=== PATIENT | female | born 1970 | race Caucasian/White ===

== ENCOUNTER 2020-04-15 21:41 | Emergency (ER) | payer OTHER, SELFPAY ==
[2020-04-15 21:44] VITALS: BP 187/88; PULSE 72; RESP 16; TEMP 36.9; O2SAT 99; BMI 74.5
[2020-04-15 23:23] VITALS: BP 136/77; PULSE 70; RESP 16; TEMP 35.6; O2SAT 97
--- NOTE | 2020-04-16 00:10 | ED.HA ---
HPI - Headache General Chief Complaint: General Medical Stated Complaint: HYPERTENSION Time Seen by Provider: 04/16/20 00:02 Source: patient Mode of arrival: ambulatory History of Present Illness HPI Narrative: patient states for about 1 week has had a migraine patient states has migraines often but this week he did not go way because of blood pressure is up. She took her blood pressure at home and it was elevated so she came into emergency department. Patient denies fevers or chills. Denies neck stiffness. Denies head trauma. Denies change in vision. Denies numbness or tingling to extremities x4. Patient states has had worse headaches. This is a slow onset of her headache. Described as global MD elicited complaint: migraine Onset (ago): day(s) ( 5) Onset description: gradually Location: frontal Severity: moderate Pain scale (0-10): 5 Quality & Timing: aching Relieving factors: rest Associated symptoms: nausea, neck stiffness, photophobia and sensitivity to sound Related Data Previous Rx's Medication Instructions Recorded psbfsrcknl-yytkiugqktxze-nleq 1 cap PO Q8H PRN #10 cap 04/16/20 [Fioricet] Allergies Allergy/AdvReac Type Severity Reaction Status Date / Time prednisone [PREDNISONE] Allergy Severe ARRYTHMIA Verified 04/16/20 00:19 shellfish derived Allergy Severe SWELLING Verified 04/16/20 00:19 lisinopril AdvReac Cough Verified 04/16/20 00:19 From ZOLOFT Allergy Severe ARRYTHMIA Uncoded 04/16/20 00:19 shellfish Allergy Unknown Anaphylaxis Uncoded 04/16/20 00:19 Review of Systems Review of Systems: Constitutional : No Weight loss, No Fever, No Chills, No Night Sweats, No Fatigue, No Malaise ENT/Mouth : No Hearing loss, No Ear Pain, No Nasal Congestion, No Sinus Pain, No Hoarseness, No sore throat, No Rhinorrhea, No Swallowing Difficulty Eyes: No Eye Pain, No Swelling, No Redness, No Foreign Body, No Discharge, No Vision Changes Cardiovascular : No Chest Pain, No SOB, No Dyspnea on Exertion, No Orthopnea, No Edema, No Palpitations Respiratory : No Cough, No Sputum, No Wheezing, No Smoke Exposure, No Dyspnea Gastrointestinal : No Nausea, No Vomiting, No Diarrhea, No Constipation, No abdominal Pain, No Hematochezia, No Melena Genitourinary : no irregular bleeding, No Dysuria, No Urinary Frequency, No Hematuria, No Urinary Incontinence, No Urgency, No Flank Pain, No Urinary Flow Changes, No Hesitancy Musculoskeletal : No joint pain, No Myalgias, No Joint Swelling Skin : No Skin Lesions, No rash Neuro : No Weakness, No Numbness, No Paresthesias, No Loss of Consciousness, No Dizziness, positive Headache Psych : No Anxiety/Panic, No Depression, No SI/HI/AH/VH, No Social Issues, Heme/Lymph: No Bruising, No Bleeding,No Lymphadenopathy Endocrine : No Polyuria, No Polydipsia, No Temperature Intolerance Neurologic: Denies Abnormal speech present COUNTS INCLUDE 234 BEDS AT THE [facility] Past Medical History Attestation statement: The following information was validated with the patient. Source: old records reviewed Medical History Back pain DVT (deep venous thrombosis) Hypertension Varicose vein of leg Social History Social History (Updated 04/16/20 @ 00:12 by Dangelo Gannon DO) Household Members: Family Alcohol intake: current Alcohol intake frequency: a few times a month Smoking Status: Never smoker Smoked in Last 30 Days: No Use of substances other than those prescribed or required for medical reasons: No Advance Directives: No Advance Directives Information Provided: No Physical Exam Vital Signs and I&O and Narrative: Vital Signs and I&O: Vital Signs Temp 96.1 F L 04/15/20 23:23 Pulse 70 04/15/20 23:23 Resp 16 04/15/20 23:23 BP 136/77 04/15/20 23:23 Pulse Ox 97 04/15/20 23:23 Intake & Output 04/15/20 04/15/20 04/16/20 06:59 18:59 06:59 Weight 216 kg Body Mass Index 74.5 vital signs reviewed normal blood pressure Const: General: cooperative, healthy appearing and well developed; No no acute distress HENMT: Head: Yes normal to inspection Eyes: Pupils: Equal, round and reactive pupils present Neck: Other: no neck stiffness Neck: Yes normal visual inspection Chest: Chest palpation & inspection: normal inspection of the chest Resp: Effort & Inspection: normal respiratory effort Auscultation: clear to auscultation bilaterally, normal I/E ratio, no crackles and no rales Cardio: Jugular venous distension: no JVD Rhythm: regular rhythm GI: Inspection: Yes normal to inspection Back/Spine/Pelvis: Thoracic/Lumbar Spine: thoracic and lumbar spine normal to inspection Skin: Rashes: no rashes Neuro: Cranial nerves: Yes Equal, round and reactive pupils present and Yes Bilaterally intact EOM present Cognition (Neuro): normal cognition Speech: No Abnormal speech present Gait exam (Neuro): Normal gait present Motor exam (neuro): 5/5 motor strength present throughout Extrem: General: Yes normal to inspection and No muscle hypertrophy Psych: Appearance: grossly normal Course Reevaluation(s) Reevaluation #1: patient states feels this headache is similar to her migraine that was related to blood pressure but now feels better that her blood pressure is normal. Will treat with IM Toradol and p.o. medications. Patient has follow-up with primary care doctor which I discussed with her a hypertension log MDM - Headache Differential Diagnosis Differential diagnosis: Likely migraine and tension headache; Unlikely meningitis and sinusitis Discharge Plan Discharge Clinical Impression: Migraine Qualifiers: Migraine type: unspecified Patient Disposition: Home, Self-Care Instructions: Migraine Headache (ED) Additional Instructions: return to the emergency department if symptoms worsen. Follow-up with your primary doctor in regards to given your blood pressure log Prescriptions: New lkflrpggxw-bndrcqwujgnsy-cifx [Fioricet] 50-300-40 mg capsule 1 cap PO Q8H PRN (Reason: pain) Qty: 10 RF: 0 Referrals: Ruby Jett [Emergency Nurse] - 2 days Interventions: ED Discharge Assessment Last Done: 04/16/20 00:50 Discharge Date/Time: 04/16/20 00:51
--- NOTE | 2020-04-16 00:15 | PC.NURSE ---
PT REPORTS OFF OF HTN MEDS- EXPERIENCING HEADACHES SINCE. BP ELEVATED AT HOME. NAUSEA YESTERDAY DENIES ACCOMPANYING SYMPTOMS AT THIS TIME. MD VELAZQUEZ AT BEDSIDE FOR PRIMARY EVAL.
--- NOTE | 2020-04-16 00:15 | MHC.MBSS ---
PT RESTING IN BED NO DISTRESS NOTED. AWAITING MD REEVAL. 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
[2020-04-16] MEDS: Ketorolac Tromethamine 30 MG/ML VIAL IM (00:27)
--- NOTE | 2020-04-16 00:28 | PC.NURSE ---
PT MEDICATED PER MAR AWAITING DC HOME.
--- NOTE | 2020-04-16 00:37 | PC.NURSE ---
PT MEDICATED PER MD ORDER- REFUSED FIORCET AND TRAMADOL, DOES NOT LIKE HEAVIER MEDS MD VELAZQUEZ NOTIFIED.AWAITING DC HOME.
== END 2020-04-16 00:51 | disposition home or self-care (01) ==
LOC: HO.ED 04-16 00:17
PROVIDERS: Emergency Provider Emergency Medicine; PCP Internal Medicine
DX: G43.909 Migraine, unspecified, not intractable, without status migrainosus (principal); I10 Essential (primary) hypertension; Z86.718 Personal history of other venous thrombosis and embolism; Z79.899 Other long term (current) drug therapy
CPT/HCPCS: 96372; 99284; J1885

== ENCOUNTER 2020-06-21 12:54 | Outpatient (REF) | payer OTHER, SELFPAY | END 2020-06-21 12:55 | disposition home or self-care (01) | LOC: HO.LAB 12:54 | PROVIDERS: PCP Internal Medicine; Visit Provider Internal Medicine | DX: Z20.828 Contact with and (suspected) exposure to other viral communicable diseases (principal) | CPT/HCPCS: C9803; U0003 ==

== ENCOUNTER 2020-07-01 15:03 | Outpatient (REF) | payer OTHER, SELFPAY | END 2020-07-01 15:04 | disposition home or self-care (01) | LOC: HO.LAB 15:03 | PROVIDERS: Visit Provider Internal Medicine | DX: Z20.828 Contact with and (suspected) exposure to other viral communicable diseases (principal) | CPT/HCPCS: C9803; U0003 ==

== ENCOUNTER 2021-04-03 17:10 | Emergency (ER) | payer OTHER, SELFPAY ==
--- NOTE | ~2021-04-03 | CT_ITS ---
EXAMINATION: CT ABDOMEN AND PELVIS WITHOUT CONTRAST CLINICAL INFORMATION: Left-sided flank pain COMPARISON: None TECHNIQUE: Multidetector volumetric imaging was performed from the superior aspect of the liver through the pubic symphysis. Sagittal and coronal reformatted images were obtained on the technologist's workstation. This CT examination was performed using dose optimization techniques as appropriate, variously including the following: *Automated exposure control *Adjustment of mA and/or kV according to patient size (this includes techniques or standardized protocols for targeted exams where dose is matched to indication/reason for exam; i.e. extremities or head) *Use of iterative reconstruction technique DLP: 947 mGy-cm FINDINGS: LUNG BASES: The visualized lung bases are unremarkable. LIVER, GALLBLADDER, AND BILIARY TREE: The liver is normal in size, shape, and attenuation. No focal hepatic lesion or biliary ductal dilatation is present. The gallbladder is contracted but otherwise unremarkable with no evidence of radiopaque gallstones, gallbladder wall thickening, or obvious pericholecystic inflammatory changes. PANCREAS: Unremarkable. SPLEEN: Unremarkable. ADRENAL GLANDS: Unremarkable. KIDNEYS AND URETERS: The kidneys are normal in size, shape, and attenuation. 2.5 cm right lower pole renal cyst is seen. No solid renal masses are present. No hydronephrosis, hydroureter, or calculi seen. No perinephric stranding. BLADDER: Unremarkable. GASTROINTESTINAL TRACT: The small and large bowel are unremarkable. The appendix is unremarkable. ABDOMINAL WALL: Small periumbilical hernia seen containing only fat. LYMPH NODES: No retroperitoneal lymphadenopathy. VASCULAR: Unremarkable. PELVIC VISCERA: An anteverted uterus is present. A bulbous cervix is present which could be due to a fibroid. A mass in the lower uterine segment cannot be entirely excluded. Pelvic ultrasound (transabdominal and endovaginal) is recommended for further evaluation. OSSEOUS STRUCTURES: Degenerative changes present in the thoracic spine as well as in the lumbosacral spine at L4-L5-S1. No bony destructive lesions seen. CT/CT abdomen pelvis wo con IMPRESSION: There is abnormal lower uterine segment/cervix. No other significant abnormality is seen. Transabdominal and endovaginal ultrasound is recommended for further evaluation. Other incidental findings as described above.
--- NOTE | ~2021-04-03 | US_ITS ---
EXAMINATION: US PELVIS CLINICAL INFORMATION: Lower abdominal pain with lower uterine segment mass seen on CT scan earlier today COMPARISON: CT abdomen pelvis 04/03/2020 TECHNIQUE: Ultrasound of the pelvis is performed using both transabdominal and transvaginal transducers along with Doppler. Transvaginal imaging is performed due to inadequate visualization transabdominally. FINDINGS: Uterus: The uterus is anteverted and measures 10.0 x 3.9 x 5.1 cm. The double wall endometrial thickness is multiple nabothian cysts are present in the cervix along with 2 larger masses with the largest measuring 3.9 x 2.7 x 3.5 cm. These are uniformly echogenic and appear to have increased sound transmission and may represent hemorrhagic nabothian cysts.. The uterus itself is smooth in contour and has normal myometrial echogenicity. No visible fibroid. Adnexa: Both ovaries are visualized. There is normal color flow to the adnexa. There is no ovarian torsion. There is no pelvic ascites or fluid collection. Right ovary measures 3.4 x 3.1 x 2.6 cm for a volume of 9.7 mL which includes a 2.3 x 2.0 x 2.1 cm simple cyst. Left ovary measures 2.1 x 1.8 x 1.9 cm for a volume of 3.8 mL. US/US pelvic and transvaginal IMPRESSION: The mass is seen in the lower uterine segment are visualized on the current study and appear uniformly colic with increased sound transmission these may represent hemorrhagic nabothian cysts. A follow-up ultrasound is recommended 1-2 months. If the finding does not resolve or change, MRI could be performed for further diagnostic evaluation.
[2021-04-03 18:09] VITALS: BP 167/63; PULSE 78; RESP 16; TEMP 37.1; O2SAT 97; BMI 39.1
[2021-04-03 20:45] LABS: MANUAL DIFF FLAG NO
[2021-04-03 20:48] LABS: Basophils Percent Auto 0.3 % (0-2); Eosinophils Absolute Auto 0.3 X10*3/uL (0.0-0.4); Eosinophils Percent Auto 3.4 % (0-4); Hemoglobin 13.3 g/dl (12.0-16.0); Imm Gran Abs Auto 0.02 X10*3/uL (0.00-0.03); Imm Gran Pct Auto 0.2 % (0.0-0.4); Lymphocytes Absolute Auto 2.5 X10*3/uL (1.2-4.9); Lymphocytes Percent Auto 27.7 % (20-40); Mean Corpuscular HGB Conc 32.4 g/dl (31.0-35.0); Mean Corpuscular Volume 86.3 fL (80-98); Mean Platelet Volume 9.7 fL (9.4-12.3); Monocytes Absolute Auto 0.7 X10*3/uL (0.1-1.2); Monocytes Percent Auto 7.6 % (2-11); Neutrophils Absolute Auto 5.4 X10*3/uL (2.0-8.3); Neutrophils Percent Auto 60.8 % (45-73); Platelet Count 326 X10*3/uL (160-400); Red Blood Count 4.75 X10*6/uL (4.20-5.50); Red Cell Distribution Width 13.2 % (11.0-16.0); White Blood Count 8.9 X10*3/uL (4.8-10.8)
--- NOTE | 2021-04-03 20:58 | ED_ITS ---
HPI - Abdominal Pain General Chief Complaint: Abdominal Pain Stated Complaint: abd pain Time Seen by Provider: 04/03/21 20:55 Source: patient Mode of arrival: ambulatory Limitations: no limitations History of Present Illness MD elicited complaint: abdominal pain Pertinent past history: none Onset (ago): day(s) (3) Pain Consistency: intermittent Location: LLQ Severity: moderate Quality: cramping Radiation: none Migration to: no migration Exacerbating factors: nothing Relieving factors: nothing Associated symptoms: nausea Related Data Previous Rx's Medication Instructions Recorded nvjgakfldu-yleecehxouggm-kjvqkkmc 1 cap PO Q8H PRN #10 cap 04/16/20 50 mg-300 mg-40 mg capsule (Fioricet) Allergies Allergy/AdvReac Type Severity Reaction Status Date / Time prednisone [PREDNISONE] Allergy Severe ARRYTHMIA Verified 04/16/20 00:19 shellfish derived Allergy Severe SWELLING Verified 04/16/20 00:19 lisinopril AdvReac Cough Verified 04/16/20 00:19 From ZOLOFT Allergy Severe ARRYTHMIA Uncoded 04/16/20 00:19 shellfish Allergy Unknown Anaphylaxis Uncoded 04/16/20 00:19 Review of Systems Review of Systems Constitutional : No Weight loss, No Fever, No Chills ENT/Mouth : No sore throat, No Rhinorrhea Eyes: No Swelling, No Redness Cardiovascular : No Chest Pain, No SOB, NoEdema Respiratory : No Cough, No Sputum, No Wheezing Gastrointestinal : Positive Nausea, no Vomiting, no Diarrhea, positive abdominal Pain, No Hematochezia, No Melena Genitourinary : No Dysuria, No Urinary Frequency, No Hematuria, No Urgency Musculoskeletal : No joint pain, No Myalgias, No Joint Swelling Skin : No Skin Lesions, No rash Neuro : No Weakness, No Numbness, No Dizziness, No Headache Psych : No Anxiety/Panic, No Depression Heme/Lymph: No Bruising, No Lymphadenopathy Endocrine : No Polyuria, No Polydipsia All other systems reviewed and are negative. Physical Exam Vital Signs: Vital Signs: Last Vital Signs Temp 97.6 F 04/03/21 21:54 Pulse 74 04/03/21 21:54 Resp 16 04/03/21 21:54 BP 142/61 H 04/03/21 21:54 Pulse Ox 99 04/03/21 21:54 Body Mass Index 39.1 Appearance: Alert. Oriented X3. No acute distress. Eyes: Pupils equal, round and reactive to light. ENT: Pharynx normal. Neck: Normal inspection. Neck supple. CVS: Normal heart rate and rhythm. Pulses normal. Respiratory: No respiratory distress. Breath sounds normal. Abdomen: Soft and mild LLQ no rebound or guarding Skin: Skin warm and dry. Normal skin color. Normal skin turgor. Extremities: No lower extremity edema. No calf ttp Neuro: Oriented X 3. No motor deficit. No sensory deficit. MDM - Abdominal Pain MDM Narrative Medical decision making narrative: 51 yo female with LLQ pain no diarrhea no fevers some nausea - at this time will need labs, UA, CT scan for renal colic and diverticulitis - dispo per results and findings. Differential Diagnosis Differential diagnosis: Likely calculus of kidney and diverticulitis Lab Data Result diagrams: 04/03/21 20:40 04/03/21 20:40 Labs: Lab Results 04/03/21 04/03/21 04/03/21 Range/Units 20:40 20:40 21:57 WBC 8.9 (4.8-10.8) X10*3/uL RBC 4.75 (4.20-5.50) X10*6/uL Hgb 13.3 (12.0-16.0) g/dl Hct 41.0 (37-47) % MCV 86.3 (80-98) fL MCH 28.0 (27.0-33.0) pg MCHC 32.4 (31.0-35.0) g/dl RDW 13.2 (11.0-16.0) % Plt Count 326 (160-400) X10*3/uL MPV 9.7 (9.4-12.3) fL Immature Gran % (Auto) 0.2 (0.0-0.4) % Neut % (Auto) 60.8 (45-73) % Lymph % (Auto) 27.7 (20-40) % Schleicher % (Auto) 7.6 (2-11) % Eos % (Auto) 3.4 (0-4) % Baso % (Auto) 0.3 (0-2) % Lymph # (Auto) 2.5 (1.2-4.9) X10*3/uL Schleicher # (Auto) 0.7 (0.1-1.2) X10*3/uL Eos # (Auto) 0.3 (0.0-0.4) X10*3/uL Baso # (Auto) 0.0 (0.0-0.2) X10*3/uL Abs Immat Gran (auto) 0.02 (0.00-0.03) X10*3/uL Absolute Neuts (auto) 5.4 (2.0-8.3) X10*3/uL Absolute Nucleated RBC 0.000 (0.0-0.012) X10*3/uL Nucleated RBC % (auto) 0.0 (0.0-0.2) /100WBC Sodium 138 (135-145) mmol/L Potassium 4.0 (3.3-5.1) mmol/L Chloride 105 (96-108) mmol/L Carbon Dioxide 27 (22-29) mmol/L Anion Gap 10 L (12-20) BUN 12 (9-16) mg/dL Creatinine 0.69 (0.5-1.4) mg/dL Estim Creat Clear Calc 128.1 Estimated GFR > 60 Random Glucose 94 (60-115) mg/dL Calcium 9.5 (8.4-10.2) mg/dL Urine Color YELLOW Urine Appearance HAZY Urine pH 5.5 (5.0-8.0) Ur Specific [place] >= 1.030 H (1.005-1.025) Urine Protein NEG (NEG-TRACE) MG/DL Urine Glucose (UA) NEG (NEG) MG/DL Urine Ketones NEG (NEG) MG/DL Urine Blood NEG (NEG) Urine Nitrite NEG (NEG) Ur Leukocyte Esterase 1+ H (NEG) Urine RBC 0-2 (0) /HPF Urine WBC 1-4 (0-4) /HPF Ur Squamous Epith Cells 2+ /LPF Urine Bacteria 1+ /LPF Urine Mucus 1+ /LPF Discharge Plan Discharge Clinical Impression: Pelvic pain Patient Disposition: Home, Self-Care Instructions: Pelvic Pain (ED) Additional Instructions: return to ED for any worsening symptoms or concerns The mass is seen in the lower uterine segment are visualized on the current study and appear uniformly colic with increased sound transmission these may represent hemorrhagic nabothian cysts. A follow-up ultrasound is recommended 1-2 months. If the finding does not resolve or change, MRI could be performed for further diagnostic evaluation. Prescriptions: No Action cpjoqtoejv-fzkeehkwgnmir-ardl [Fioricet] 50-300-40 mg capsule 1 cap PO Q8H PRN (Reason: pain) Qty: 10 RF: 0 Referrals: Pito Banda MD [Physician] - 1 week Stand Alone Forms: Work/School Release [facility] Past Medical History Attestation statement: The following information was validated with the patient. Medical History (Updated 04/03/21 @ 22:58 by Ning Temple DO) Back pain DVT (deep venous thrombosis) Hypertension Varicose vein of leg Surgical History (Updated 04/03/21 @ 21:17 by Ning Temple DO) Tubal ligation status Social History Social History (Updated 04/03/21 @ 21:17 by Ning Temple DO) Household Members: Family Alcohol intake: current Alcohol intake frequency: a few times a month Patient Tobacco Use Status: Never used Tobacco Advance Directives: No Advance Directives Information Provided: No
[2021-04-03 21:02] LABS: Anion Gap 10 (12-20); Blood Urea Nitrogen 12 mg/dL (9-16); Calcium 9.5 mg/dL (8.4-10.2); Carbon Dioxide 27 mmol/L (22-29); Chloride 105 mmol/L (96-108); Creatinine Clr Calc Pharmacy 128.1; Estimated Glomerular Filt Rate > 60; Glucose Random 94 mg/dL (60-115); Sodium 138 mmol/L (135-145)
--- NOTE | 2021-04-03 21:05 | PC.NURSE ---
pt to hallway with c/o abd pain and nausea x [address] in stretcher.
[2021-04-03 21:54] VITALS: BP 142/61; PULSE 74; RESP 16; TEMP 36.4; O2SAT 99
[2021-04-03 22:03] LABS: Appearance Urine HAZY; Color Urine YELLOW; Glucose Urine UA NEG (NEG); Leukocyte Esterase Urine 1+ (NEG); Nitrite Urine NEG (NEG); PH 5.5 (5.0-8.0); Specific Gravity - Urine >= 1.030 (1.005-1.025); UACC Culture Trigger YES; Urine Blood NEG (NEG); Urine Ketones NEG (NEG); Urine Protein NEG (NEG-TRACE)
[2021-04-03 22:09] LABS: Bacteria Urine 1+ /LPF; Squamous Epithelial Cell Urine 2+ /LPF
[2021-04-03 22:12] LABS: Mucus Urine 1+ /LPF; RBC Urine 0-2 /HPF (0)
== END 2021-04-04 00:23 | disposition home or self-care (01) ==
PROVIDERS: Emergency Provider Emergency Medicine; PCP Internal Medicine
DX: R10.32 Left lower quadrant pain (principal); R10.2 Pelvic and perineal pain; Z79.899 Other long term (current) drug therapy
CPT/HCPCS: 36415; 74176; 76830; 76856; 80048; 81001; 85025; 87086; 99283; 99284

== ENCOUNTER → 2022-04-13 08:10 | Outpatient (BNVA) | payer OTHER, SELFPAY | PROVIDERS: PCP Internal Medicine; Visit Provider Student in an Organized Health Care Education/Training Program | DX: M16.11 Unilateral primary osteoarthritis, right hip (principal); M79.7 Fibromyalgia | CPT/HCPCS: 99202 ==

== ENCOUNTER 2023-10-31 17:33 | Emergency (ER) | payer OTHER, SELFPAY ==
[2023-10-31 18:49] VITALS: BP 171/92; PULSE 75; RESP 16; TEMP 36.1; O2SAT 96; BMI 32.8
--- NOTE | 2023-10-31 18:49 | ED.GENADULT ---
HPI - General Adult General Chief complaint: Eye Problems Stated complaint: rt eye swollen Source: patient Mode of arrival: ambulatory Limitations: no limitations History of Present Illness HPI narrative: 53-year-old female history of migraine, obesity, fibromyalgia presenting with right eye redness and redness around right eye. Patient reports this started on Saturday. Patient does not wear contacts. She denies trauma to the affected area. She reports a gritty sensation in her eye. Denies pain with eye movement. Denies recent illness. Denies fevers, chills, chest pain, shortness breath, neck pain, headache, vision changes, dizziness or weakness. Related Data Home Medications ?Medication ?Instructions ?Recorded ?Confirmed oxycodone-acetaminophen 5 mg-325 1 tab PO QID PRN 04/13/22 mg tablet rizatriptan 10 mg tablet 10 mg PO DAILY PRN headache 04/13/22 topiramate 50 mg tablet 50 mg PO DAILY 04/13/22 Previous Rx's ?Medication ?Instructions ?Recorded doavihfmls-equqxtpblrxhf-jupaercb 1 cap PO Q8H PRN pain #10 caps 04/16/20 50 mg-300 mg-40 mg capsule (Fioricet) cephalexin 500 mg tablet 500 mg PO Q6H 10 days #40 tabs 10/31/23 erythromycin 5 mg/gram (0.5 %) eye 1 appl ophthalmic (eye) TID 5 days 10/31/23 ointment #3.5 grams Allergies Allergy/AdvReac Type Severity Reaction Status Date / Time prednisone [PREDNISONE] Allergy Severe ARRYTHMIA Verified 10/31/23 18:50 shellfish derived Allergy Severe SWELLING Verified 10/31/23 18:50 drospirenone AdvReac Intermediate Unknown Verified 10/31/23 18:50 [From Samina (21)] ethinyl estradiol AdvReac Intermediate Unknown Verified 10/31/23 18:50 [From Samina (21)] gabapentin AdvReac Intermediate Insomnia Verified 10/31/23 18:50 losartan AdvReac Intermediate Dizziness, Verified 10/31/23 18:50 Abdominal pain polyethylene glycol AdvReac Intermediate Nausea and Verified 10/31/23 18:50 [From Colyte] Vomiting polyethylene glycol 3350 AdvReac Intermediate Nausea and Verified 10/31/23 18:50 [From Colyte] Vomiting potassium chloride AdvReac Intermediate Nausea and Verified 10/31/23 18:50 [From Colyte] Vomiting sodium [From Colyte] AdvReac Intermediate Nausea and Verified 10/31/23 18:50 Vomiting sodium bicarbonate AdvReac Intermediate Nausea and Verified 04/13/22 08:16 [From Colyte] Vomiting sodium chloride [From Colyte] AdvReac Intermediate Nausea and Verified 04/13/22 08:16 Vomiting sodium sulfate [From Colyte] AdvReac Intermediate Nausea and Verified 04/13/22 08:16 Vomiting lisinopril AdvReac Cough Verified 04/13/22 08:16 From ZOLOFT Allergy Severe ARRYTHMIA Uncoded 04/13/22 08:16 shellfish Allergy Unknown Anaphylaxis Uncoded 04/13/22 08:16 Review of Systems Review of Systems: Yes all other systems are reviewed and are negative PMFSH Past Medical History Attestation statement: The following information was validated with the patient. Source: old records reviewed and nursing notes reviewed Medical History (Updated 10/31/23 @ 18:53 by JEB Stein) Gastritis Degenerative joint disease (DJD) of lumbar spine Asthma DVT (deep venous thrombosis) Varicose vein of leg Back pain Hypertension Surgical History Status post laser ablation of incompetent vein S/P sclerotherapy of varicose veins Hx of tubal ligation History of endometrial ablation History of esophagogastroduodenoscopy (EGD) Hx of colonoscopy H/O breast biopsy Family History Family History Mother Hypertension Cataract Glaucoma Colon cancer Stroke Rheumatoid arthritis Fibromyalgia Thyroid disease Father Hypertension Paternal Grandmother Diabetes Maternal Grandmother Diabetes Myocardial infarction Maternal Grandfather Colon cancer Sister Thyroid disease Other Breast cancer Social History Social History Household Members: Family Household Members Other:: and son Alcohol intake: current Alcohol intake frequency: does not drink Patient Tobacco Use Status: Former Tobacco user Quit Date: 08/30/1992 Current occupational status: employed Current occupation: [employer]IST Physical Exam ED Vital Signs: vss Appearance: Alert.? Oriented X3.? No acute distress.? Head: Normocephalic, atraumatic, no step-offs or deformities Eyes: Pupils equal, round and reactive to light.? ENT: Pharynx normal.? periorbital erythema to right eye. EOMI and pain free b/l. PEERLA. Visual coyle by confrontation intact b/l. Patient able to read signs across room. No evidence of foreign body. Neck: Normal inspection.? Neck supple.? CVS: Normal heart rate and rhythm.? Pulses normal.? Respiratory: No respiratory distress.? Breath sounds normal.? Abdomen: Soft and nontender.? Skin: Skin warm and dry.? Normal skin color.? Normal skin turgor.? Extremities: No lower extremity edema.? No calf ttp. 5/5 strength to bilateral upper and lower extremities Neuro: Oriented X 3.? No motor deficit.? No sensory deficit. CN 2-12 intact Course Course Course Narrative: This is an RME: Additional HPI, ROS, PE not included below will be deferred to primary provider. 53 yo f presents with eye irritation since Saturday. No pain with extraocular ROM. Reevaluation(s) Reevaluation #1: Patient to be dc from the waiting room. Educated patient on diagnosis and treatment plan, answered all question, patient verbalizes understanding. At this time patient will be discharged home, advised to return with new or worsening symptoms. Educated on worrisome signs and symptoms and when to return. At this time I feel comfortable discharge home. Time: 18:57 Medical Decision Making Medical Decision Making [facility] Narrative: 1853 53 yo f presents w/ redness around right eye and to r eye since saturday PE periorbital erythema to right eye. EOMI and pain free b/l. PEERLA. Visual coyle by confrontation intact b/l. Patient able to read signs across room. No evidence of foreign body. Hx and pe concerning for conjunctivitis and periorbital cellulitis. Unlikely orbital cellulitis, ich, stroke, meningitis, encephalitis. Plan- dc from waiting room w/ treatment Differential Diagnosis Differential Diagnoses: The differential diagnosis associated with the presentation includes Hx and pe concerning for conjunctivitis and periorbital cellulitis. Unlikely orbital cellulitis, ich, stroke, meningitis, encephalitis. Admission/Observation Consideration of admission/observation: Escalation of care including admission/observation considered Tests considered The following testing was considered but not selected: considered orbit ct but no pain w/ EOM Prescription Management I considered prescription management with: Antibiotic Chronic Conditions Patient?s care impacted by: Other (migrane, fibromyalgia ) Critical Care Time Critical Care Time Critical Care Time: No Discharge Plan Discharge Clinical Impression: Conjunctivitis Periorbital cellulitis Qualifiers: Laterality: right Qualified Code(s): L03.213 - Periorbital cellulitis Patient Disposition: Home, Self-Care Instructions: Cellulitis (DC), Conjunctivitis (ED) Additional Instructions: Take your medications as prescribed. If you were prescribed antibiotics today, it is important that you take your medication to their entirety, do not skip any doses, do not finish them early. Follow-up with your primary care provider this week. Return to the emergency department with new or worsening symptoms such as pain with eye movements, fevers, chills. In case of emergency call 911 Prescriptions: New erythromycin 5 mg/gram (0.5 %) ointment 1 appl ophthalmic (eye) TID 5 Days Qty: 3.5 0RF cephalexin 500 mg tablet 500 mg PO Q6H 10 Days Qty: 40 0RF No Action [id number]-[id number] [Fioricet] 50-300-40 mg capsule 1 cap PO Q8H PRN (Reason: pain) Qty: 10 0RF oxycodone-acetaminophen 5-325 mg tablet 1 tab PO QID PRN topiramate 50 mg tablet 50 mg PO DAILY rizatriptan 10 mg tablet 10 mg PO DAILY PRN (Reason: headache) Print Language: Yoruba
[2023-10-31 19:03] VITALS: BP 00/00; PULSE 0; RESP 0; TEMP -17.7; TEMP 0; O2SAT 0
== END 2023-10-31 19:05 | disposition home or self-care (01) ==
LOC: HO.ED 19:04
PROVIDERS: Emergency Provider Emergency Medicine; PCP Internal Medicine
DX: L03.213 Periorbital cellulitis (principal); H10.9 Unspecified conjunctivitis; I10 Essential (primary) hypertension; Z86.718 Personal history of other venous thrombosis and embolism
CPT/HCPCS: 99282; 99283